=== PATIENT | female | born 1970 | race Caucasian/White ===

== ENCOUNTER → 2017-08-26 | Outpatient (CLI) | payer OTHER, BC ==
[2017-08-26 12:12] LABS: HEMATOCRIT 45.5 % (37.0-47.0); HEMOGLOBIN 14.9 g/dL (12.5-16.0); MEAN PLATELET VOLUME 9.8 fl (7.4-10.4); RED BLOOD COUNT 4.85 M/mm3 (4.10-5.30); RED CELL DISTRIBUTION WIDTH 12.6 % (11.5-14.5); WHITE BLOOD COUNT 6.2 K/mm3 (4.8-10.8)
[2017-08-26 12:21] LABS: ALBUMIN 4.5 g/dL (3.5-5.0); BUN/CREATININE RATIO 17.3 (6.0-26.0); CALCIUM 9.6 mg/dL (8.4-10.2); POTASSIUM 4.5 mmol/L (3.6-5.0); TOTAL BILIRUBIN 0.6 mg/dL (0.2-1.3); TOTAL PROTEIN 7.9 g/dL (6.3-8.2)
== END ==
LOC: LAB 11:54
PROVIDERS: Family Medicine
DX: I10 Essential (primary) hypertension (principal); F90.9 Attention-deficit hyperactivity disorder, unspecified type

== ENCOUNTER → 2018-02-28 | Outpatient (CLI) | payer BC, OTHER ==
[2018-02-28 19:03] LABS: EOS # 0.1 (0.04-0.40); EOS % 1.7 % (1.0-5.0); HEMATOCRIT 42.6 % (37.0-47.0); HEMOGLOBIN 13.7 g/dL (12.5-16.0); LYMPH# 1.2 (1.50-4.00); MEAN CELL VOLUME 96 fl (78-100); MEAN CORPUSCULAR HEMOGLOBIN 31 pg (27-31); MEAN CORPUSCULAR HGB CONC 32 g/dL (33-37); MEAN PLATELET VOLUME 10.5 fl (7.4-10.4); MONO # 0.5 (0.20-0.80); NEU # 6.4 (1.40-6.50); PLATELET COUNT 318 K/mm3 (130-400); RED BLOOD COUNT 4.45 M/mm3 (4.10-5.30); RED CELL DISTRIBUTION WIDTH 13.1 % (11.5-14.5); WHITE BLOOD COUNT 8.2 K/mm3 (4.8-10.8)
[2018-02-28 20:20] LABS: ERYTHROCYTE SEDIMENTATION RATE 4 mm/hr (0-20)
[2018-02-28 21:03] LABS: ALBUMIN 4.2 g/dL (3.5-5.0); BUN/CREATININE RATIO 23.2 (6.0-26.0); CALCIUM 9.4 mg/dL (8.4-10.2); POTASSIUM 3.8 mmol/L (3.6-5.0); TOTAL BILIRUBIN 0.3 mg/dL (0.2-1.3); TOTAL PROTEIN 6.8 g/dL (6.3-8.2)
[2018-03-01 11:59] LABS: C-REACTIVE PROTEIN XXX
[2018-03-01 22:19] LABS: ANA SCREEN with REFLEX Negative (Negative)
== END ==
LOC: LAB 16:45
PROVIDERS: Family Medicine
DX: R53.83 Other fatigue (principal)

== ENCOUNTER → 2018-09-29 | Outpatient (CLI) | payer BC, OTHER ==
[2018-09-29 14:37] LABS: EOS # 0.2 (0.04-0.40); EOS % 2.6 % (1.0-5.0); HEMATOCRIT 42.9 % (37.0-47.0); HEMOGLOBIN 14.1 g/dL (12.5-16.0); LYMPH# 1.7 (1.50-4.00); MEAN CELL VOLUME 96 fl (78-100); MEAN CORPUSCULAR HEMOGLOBIN 31 pg (27-31); MEAN CORPUSCULAR HGB CONC 33 g/dL (33-37); MONO # 0.5 (0.20-0.80); NEU # 4.7 (1.40-6.50); PLATELET COUNT 342 K/mm3 (130-400); RED BLOOD COUNT 4.49 M/mm3 (4.10-5.30); RED CELL DISTRIBUTION WIDTH 12.8 % (11.5-14.5); WHITE BLOOD COUNT 7.1 K/mm3 (4.8-10.8)
[2018-09-29 14:45] LABS: ALBUMIN 4.5 g/dL (3.5-5.0); CALCIUM 9.5 mg/dL (8.4-10.2); POTASSIUM 3.7 mmol/L (3.6-5.0); TOTAL BILIRUBIN 0.4 mg/dL (0.2-1.3); TOTAL PROTEIN 7.3 g/dL (6.3-8.2)
== END ==
LOC: LAB 13:57
PROVIDERS: Family Medicine
DX: Z01.419 Encounter for gynecological examination (general) (routine) without abnormal findings (principal); R53.83 Other fatigue; E55.9 Vitamin D deficiency, unspecified; E56.9 Vitamin deficiency, unspecified; R14.0 Abdominal distension (gaseous)

== ENCOUNTER → 2020-02-25 | Outpatient (CLI) | payer BC, OTHER | LOC: LAB 11:22 | DX: R05 Cough (principal) ==

== ENCOUNTER → 2020-10-13 | Outpatient (CLI) | payer BC, OTHER ==
[2020-10-13 09:35] LABS: EOS % 0.6 % (1.0-5.0); HEMATOCRIT 43.5 % (37.0-47.0); HEMOGLOBIN 13.8 g/dL (12.5-16.0); LYMPH# 1.1 (1.50-4.00); MEAN CELL VOLUME 94 fl (78-100); MEAN CORPUSCULAR HEMOGLOBIN 30 pg (27-31); MEAN CORPUSCULAR HGB CONC 32 g/dL (33-37); MEAN PLATELET VOLUME 9.6 fl (7.4-10.4); MONO # 0.4 (0.20-0.80); PLATELET COUNT 320 K/mm3 (130-400); RED BLOOD COUNT 4.61 M/mm3 (4.10-5.30); RED CELL DISTRIBUTION WIDTH 12.4 % (11.5-14.5); WHITE BLOOD COUNT 6.4 K/mm3 (4.8-10.8)
[2020-10-13 09:38] LABS: ALBUMIN 4.4 g/dL (3.5-5.0); POTASSIUM 4.3 mmol/L (3.5-5.1)
[2020-10-13 09:39] LABS: CALCIUM 9.3 mg/dL (8.3-10.5)
[2020-10-13 09:40] LABS: TOTAL PROTEIN 6.7 g/dL (6.4-8.3)
[2020-10-13 09:42] LABS: TOTAL BILIRUBIN 0.4 mg/dL (0.2-1.2)
== END ==
LOC: LAB 09:15
PROVIDERS: Family Medicine
DX: Z00.00 Encounter for general adult medical examination without abnormal findings (principal); E78.5 Hyperlipidemia, unspecified; R53.83 Other fatigue

== ENCOUNTER → 2021-09-18 | Outpatient (CLI) | payer BC, OTHER ==
[2021-09-18 14:38] LABS: BASO # 0.04 K/mm3 (0.02-0.10); EOS # 0.29 K/mm3 (0.04-0.40); HEMATOCRIT 43.4 % (37.0-47.0); HEMOGLOBIN 14.2 g/dL (12.5-16.0); LYMPH# 1.63 K/mm3 (1.50-4.00); MEAN CELL VOLUME 96 fl (78-100); MEAN CORPUSCULAR HEMOGLOBIN 32 pg (27-31); MEAN CORPUSCULAR HGB CONC 33 g/dL (33-37); MEAN PLATELET VOLUME 9.4 fl (7.4-10.4); MONO # 0.46 K/mm3 (0.20-0.80); NEU # 4.81 K/mm3 (1.40-6.50); PLATELET COUNT 325 K/mm3 (130-400); RED CELL DISTRIBUTION WIDTH 12.5 % (11.5-14.5); WHITE BLOOD COUNT 7.2 K/mm3 (4.8-10.8)
[2021-09-18 14:57] LABS: ALBUMIN 4.6 g/dL (3.5-5.0); POTASSIUM 3.6 mmol/L (3.5-5.1)
[2021-09-18 14:58] LABS: CALCIUM 9.9 mg/dL (8.3-10.5)
[2021-09-18 15:00] LABS: TOTAL PROTEIN 7.4 g/dL (6.4-8.3)
[2021-09-18 15:02] LABS: TOTAL BILIRUBIN 0.4 mg/dL (0.2-1.2)
== END ==
LOC: LAB 14:26
PROVIDERS: Family Medicine
DX: Z00.00 Encounter for general adult medical examination without abnormal findings (principal); E78.5 Hyperlipidemia, unspecified

== ENCOUNTER → 2022-04-27 | Outpatient (CLI) | payer BC, OTHER ==
[2022-04-27 15:50] LABS: BASO # 0.02 K/mm3 (0.02-0.10); EOS # 0.06 K/mm3 (0.04-0.40); EOS % 0.8 % (1.0-5.0); HEMATOCRIT 44.2 % (37.0-47.0); HEMOGLOBIN 14.6 g/dL (12.5-16.0); LYMPH# 1.49 K/mm3 (1.50-4.00); MEAN CELL VOLUME 95 fl (78-100); MEAN CORPUSCULAR HEMOGLOBIN 32 pg (27-31); MEAN CORPUSCULAR HGB CONC 33 g/dL (33-37); MEAN PLATELET VOLUME 9.3 fl (7.4-10.4); MONO # 0.38 K/mm3 (0.20-0.80); NEU # 5.85 K/mm3 (1.40-6.50); PLATELET COUNT 333 K/mm3 (130-400); RED BLOOD COUNT 4.64 M/mm3 (4.10-5.30); RED CELL DISTRIBUTION WIDTH 13.3 % (11.5-14.5); WHITE BLOOD COUNT 7.8 K/mm3 (4.8-10.8)
[2022-04-27 16:13] LABS: ALBUMIN 4.6 g/dL (3.5-5.0); POTASSIUM 3.7 mmol/L (3.5-5.1)
[2022-04-27 16:14] LABS: CALCIUM 10.1 mg/dL (8.3-10.5)
[2022-04-27 16:16] LABS: TOTAL PROTEIN 7.3 g/dL (6.4-8.3)
[2022-04-27 16:17] LABS: TOTAL BILIRUBIN 0.5 mg/dL (0.2-1.2)
[2022-04-30 11:50] LABS: VITAMIN A 65.4 mcg/dL (())
== END ==
LOC: LAB 15:20
PROVIDERS: Family Medicine
DX: Z00.00 Encounter for general adult medical examination without abnormal findings (principal); F90.9 Attention-deficit hyperactivity disorder, unspecified type; F32.9 Major depressive disorder, single episode, unspecified; N80.9 Endometriosis, unspecified; F41.1 Generalized anxiety disorder; I10 Essential (primary) hypertension; G47.00 Insomnia, unspecified; G43.909 Migraine, unspecified, not intractable, without status migrainosus; E78.5 Hyperlipidemia, unspecified; E56.9 Vitamin deficiency, unspecified; E03.9 Hypothyroidism, unspecified; J30.9 Allergic rhinitis, unspecified

== ENCOUNTER 2022-06-16 11:51 | Emergency (ER) | payer BC, OTHER ==
[2022-06-16 14:26] VITALS: BP 161/97
== END 2022-06-16 14:27 | disposition home or self-care (01) ==
LOC: ED 11:51
DX: S06.0X0A Concussion without loss of consciousness, initial encounter (principal); W22.8XXA Striking against or struck by other objects, initial encounter

== ENCOUNTER → 2022-08-20 | Outpatient (CLI) | payer BC, OTHER | LOC: LAB 08:33 | DX: J30.9 Allergic rhinitis, unspecified (principal); R53.83 Other fatigue; Z77.120 Contact with and (suspected) exposure to mold (toxic) ==

== ENCOUNTER → 2024-03-12 | Outpatient (CLI) | payer BC, OTHER ==
[2024-04-16 09:08] LABS: ALBUMIN 4.5 g/dL (3.5-5.0); CALCIUM 9.9 mg/dL (8.3-10.5); TOTAL BILIRUBIN 0.4 mg/dL (0.2-1.2); TOTAL PROTEIN 6.3 g/dL (6.4-8.3)
[2024-04-16 09:32] LABS: BASO # 0.02 K/mm3 (0.02-0.10); EOS # 0.25 K/mm3 (0.04-0.40); EOS % 4.8 % (1.0-5.0); HEMATOCRIT 45.3 % (37.0-47.0); HEMOGLOBIN 14.5 g/dL (12.5-16.0); LYMPH# 1.34 K/mm3 (1.50-4.00); MEAN CELL VOLUME 97 fl (78-100); MEAN CORPUSCULAR HEMOGLOBIN 31 pg (27-31); MEAN CORPUSCULAR HGB CONC 32 g/dL (33-37); MEAN PLATELET VOLUME 8.9 fl (7.4-10.4); MONO # 0.32 K/mm3 (0.20-0.80); NEU # 3.25 K/mm3 (1.40-6.50); PLATELET COUNT 278 K/mm3 (130-400); RED BLOOD COUNT 4.65 M/mm3 (4.10-5.30); RED CELL DISTRIBUTION WIDTH 11.7 % (11.5-14.5); WHITE BLOOD COUNT 5.2 K/mm3 (4.8-10.8)
== END ==
LOC: LAB 07:30
PROVIDERS: Nurse Practitioner
DX: E78.2 Mixed hyperlipidemia (principal); E55.9 Vitamin D deficiency, unspecified; R22.1 Localized swelling, mass and lump, neck

== ENCOUNTER 2024-07-15 15:34 | Emergency (ER) | payer BC, OTHER ==
[~2024-07-15] VITALS: Ht 160 cm; Wt 61.5 kg
[2024-07-15] MEDS ORDERED: ALPRAZOLAM0.5 MG PO (15:57)
[2024-07-15] MEDS ORDERED: PRAZOSIN PO (15:57)
[2024-07-15] MEDS ORDERED: TOPIRAMATE25 MG PO (15:57)
[2024-07-15] MEDS ORDERED: ALPRAZOLAM1 MG PO (15:58)
[2024-07-15] MEDS ORDERED: DESVENLAFAXINE50 M3 PO (15:58)
[2024-07-15] MEDS ORDERED: PRAZOSIN HYDROCH5 MG PO (15:58)
[2024-07-15] MEDS ORDERED: WELLBUTRIN XL300 M1 PO (15:58)
[2024-07-15] MEDS ORDERED: RIZATRIPTAN BEN10 MG PO (15:59)
[2024-07-15] MEDS ORDERED: HCTZ 25MG25 MG PO (15:59)
[2024-07-15] MEDS ORDERED: VITAMIN D325 MC2 (16:00)
[2024-07-15] MEDS ORDERED: VYVANSE40 MG PO (16:00)
[2024-07-15] MEDS ORDERED: ESTRADIOL PO (16:00)
[2024-07-15] MEDS ORDERED: ZOLPIDEM TART12.5 MG PO (16:00)
[2024-07-15] MEDS ORDERED: NORET PO (16:00)
[2024-07-15] MEDS ORDERED: SINGULAIR 110 MG/TAB PO (16:01)
[2024-07-15] MEDS ORDERED: AIMOVIG AU70 MG/1 ML SQ (16:01)
[2024-07-15] MEDS ORDERED: TRETINOIN20 G2 TOP (16:01)
[2024-07-15] MEDS ORDERED: PAXLOVID 300-11 EACH PO (16:29)
[2024-07-15 17:09] VITALS: BP 134/102
== END 2024-07-15 17:10 | disposition home or self-care (01) ==
LOC: ED 15:34
DX: U07.1 COVID-19 (principal); R05.9 Cough, unspecified; R09.81 Nasal congestion; J02.9 Acute pharyngitis, unspecified

== ENCOUNTER → 2024-09-05 | Outpatient (CLI) | payer BC, OTHER ==
[~2024-09-05] MED LIST: AIMOVIG AU70 MG/1 ML SQ; ALBUTEROL SULF6.7 GM IH; ALPRAZOLAM0.5 MG PO; ALPRAZOLAM1 MG PO; Bentyl PO; CEFDINIR300 MG PO; CETIRIZINE HCL10 MG PO; DAILY MULTIVIT1 EACH PO; DESVENLAFAXINE50 M3 PO; ESTRADIOL PO; FLUCONAZOLE100 MG PO; HCTZ 25MG25 MG PO; HYDROCODONE-CH115 ML; MAGNESIUM OXID400 M2 PO; NORET PO; PAXLOVID 300-11 EACH PO; POTASSIUM CHLO10 ME7 PO; PRAZOSIN HYDROCH5 MG PO; PRAZOSIN PO; RIZATRIPTAN BEN10 MG PO; SINGULAIR 110 MG/TAB PO; TOPIRAMATE25 MG PO; TRETINOIN20 G2 TOP; VANCOCIN125 MG PO; VITAMIN D325 MC2; VYVANSE40 MG PO; WELLBUTRIN XL300 M1 PO; ZOLPIDEM TART12.5 MG PO; [UNRECOGNIZED DRUG - OTHER] PO
[2024-09-05 09:07] LABS: BASO # 0.02 K/mm3 (0.02-0.10); EOS # 0.12 K/mm3 (0.04-0.40); HEMATOCRIT 43.5 % (37.0-47.0); HEMOGLOBIN 14.2 g/dL (12.5-16.0); LYMPH# 1.31 K/mm3 (1.50-4.00); MEAN CELL VOLUME 98 fl (78-100); MEAN CORPUSCULAR HEMOGLOBIN 32 pg (27-31); MEAN CORPUSCULAR HGB CONC 33 g/dL (33-37); MEAN PLATELET VOLUME 9.3 fl (7.4-10.4); MONO # 0.37 K/mm3 (0.20-0.80); NEU # 4.14 K/mm3 (1.40-6.50); PLATELET COUNT 312 K/mm3 (130-400); RED BLOOD COUNT 4.45 M/mm3 (4.10-5.30); RED CELL DISTRIBUTION WIDTH 12.9 % (11.5-14.5)
[2024-09-05 09:18] LABS: ALBUMIN 4.5 g/dL (3.5-5.0)
[2024-09-05 09:19] LABS: CALCIUM 9.4 mg/dL (8.3-10.5)
[2024-09-05 09:21] LABS: TOTAL PROTEIN 6.9 g/dL (6.4-8.3)
[2024-09-05 09:22] LABS: TOTAL BILIRUBIN 0.4 mg/dL (0.2-1.2)
[2024-09-05 09:35] LABS: D-DIMER 0.64 mg/L FEU (0.15-0.50)
== END ==
LOC: LAB 08:43
PROVIDERS: Family Medicine
DX: R05.9 Cough, unspecified (principal); I10 Essential (primary) hypertension

== ENCOUNTER → 2024-09-07 | Outpatient (CLI) | payer BC, OTHER ==
[~2024-09-07] MED LIST changes: -ALBUTEROL SULF6.7 GM IH; -Bentyl PO; -CEFDINIR300 MG PO; -CETIRIZINE HCL10 MG PO; -DAILY MULTIVIT1 EACH PO; -FLUCONAZOLE100 MG PO; -HYDROCODONE-CH115 ML; +Iohexol 350 - 100 ML VIAL IV ONE; -MAGNESIUM OXID400 M2 PO; -POTASSIUM CHLO10 ME7 PO; -VANCOCIN125 MG PO; -[UNRECOGNIZED DRUG - OTHER] PO
== END ==
LOC: RAD 09:37
DX: R79.1 Abnormal coagulation profile (principal)
CPT/HCPCS: Q9967

== ENCOUNTER 2024-09-12 14:59 | Inpatient (IN) | payer BC, OTHER ==
[~2024-09-12] VITALS: Ht 160 cm; Wt 63.0 kg
[~2024-09-12 14:59] MED LIST changes: -Iohexol 350 - 100 ML VIAL IV ONE
[2024-09-12] MEDS ORDERED: CEFDINIR300 MG PO (16:44)
[2024-09-12] MEDS ORDERED: WELLBUTRIN XL300 M1 PO (16:44)
[2024-09-12] MEDS ORDERED: FLUCONAZOLE100 MG PO (16:44)
[2024-09-12] MEDS ORDERED: HYDROmorphone 0.5 MG/0.5 ML SYRINGE IV ONE (16:45)
[2024-09-12] MEDS ORDERED: Ondansetron 4 MG/2 ML VIAL IV ONE (16:45)
[2024-09-12] MEDS ORDERED: ALBUTEROL SULF6.7 GM IH (16:45)
[2024-09-12] MEDS ORDERED: NS 1,000 ML IV ONE (16:45)
[2024-09-12] MEDS ORDERED: HYDROCODONE-CH115 ML (16:47)
[2024-09-12] MEDS ORDERED: Iohexol 300 - 100 ML VIAL IV ONE (16:47)
[2024-09-12] MEDS ORDERED: CETIRIZINE HCL10 MG PO (16:49)
[2024-09-12] MEDS ORDERED: MAGNESIUM OXID400 M2 PO (16:50)
[2024-09-12 17:06] LABS: HEMATOCRIT 45.7 % (37.0-47.0); HEMOGLOBIN 15.1 g/dL (12.5-16.0); MEAN CELL VOLUME 97 fl (78-100); MEAN CORPUSCULAR HEMOGLOBIN 32 pg (27-31); MEAN CORPUSCULAR HGB CONC 33 g/dL (33-37); MEAN PLATELET VOLUME 9.1 fl (7.4-10.4); PLATELET COUNT 301 K/mm3 (130-400); RED CELL DISTRIBUTION WIDTH 12.9 % (11.5-14.5)
[2024-09-12 17:13] LABS: WHITE BLOOD COUNT 24.6 K/mm3 (4.8-10.8)
[2024-09-12 17:17] LABS: ALBUMIN 4.5 g/dL (3.5-5.0)
[2024-09-12 17:19] LABS: CALCIUM 9.7 mg/dL (8.3-10.5)
[2024-09-12 17:22] LABS: TOTAL BILIRUBIN 0.4 mg/dL (0.2-1.2)
[2024-09-12 17:41] LABS: BAND 8 % (0-10); LYMPHOCYTE 4 % (20-51); MONOCYTE 1 % (3-10); NEUTROPHILS 87 % (42-75)
[2024-09-12 18:12] LABS: URINE APPEARANCE SLIGHTLY CLOUDY (CLEAR); URINE BILIRUBIN NEGATIVE (NEGATIVE); URINE BLOOD NEGATIVE (NEGATIVE); URINE COLOR DARK YELLOW (YELLOW); URINE GLUCOSE NEGATIVE (NEGATIVE); URINE KETONE NEGATIVE (NEGATIVE); URINE LEUKOCYTE ESTERASE NEGATIVE (NEGATIVE); URINE NITRATE NEGATIVE (NEGATIVE); URINE PROTEIN(semi-quant) TRACE (NEGATIVE)
[2024-09-12 18:15] LABS: PH-URINE 7.5 (5.0 - 8.0); URINE MUCUS PRESENT (NOT PRESENT); URINE WBC 0-1 /hpf (0-3)
[2024-09-12] MEDS ORDERED: cefTRIAXone 1 G in Water For Injection,Sterile 10 ML IV ONE (18:30)
[2024-09-12] MEDS ORDERED: DAILY MULTIVIT1 EACH PO (18:41)
[2024-09-12] MEDS ORDERED: [UNRECOGNIZED DRUG - OTHER] PO (18:43)
[2024-09-12] MEDS ORDERED: Ketorolac 30 MG/ML VIAL IV SCH (20:00)
[2024-09-12] MEDS ORDERED: Cetirizine 10 MG TAB PO PRN (20:00)
[2024-09-12] MEDS ORDERED: ALPRAZolam 0.5 MG TAB PO PRN (20:00)
[2024-09-12] MEDS ORDERED: NS 1,000 ML IV SCH (20:00)
[2024-09-12] MEDS ORDERED: oxyCODONE 5 MG TAB PO PRN (20:00)
[2024-09-12] MEDS ORDERED: Naloxone 0.4 MG/ML VIAL IV PRN (20:00)
[2024-09-12] MEDS ORDERED: Albuterol 90 MCG/PUFF MDI IH PRN (20:00)
[2024-09-12] MEDS ORDERED: Acetaminophen 325 MG TAB PO PRN (20:00)
[2024-09-12] MEDS ORDERED: Piperacillin/Tazobactam Sodium 3.375 GM in NS 100 ML IV SCH (20:00)
[2024-09-12 20:34] VITALS: BP 121/73
[2024-09-12] MEDS ORDERED: Montelukast 10 MG TAB PO SCH (21:00)
[2024-09-12] MEDS ORDERED: HYDROcodone/Chlorphen Polst ER Susp 10-8 MG/5 ML UD PO SCH (21:00)
[2024-09-12] MEDS ORDERED: ALPRAZolam 0.5 MG TAB PO SCH (21:00)
[2024-09-12] MEDS ORDERED: Prazosin 1 MG CAP PO SCH (21:00)
[2024-09-12] MEDS ORDERED: Zolpidem 5 MG TAB PO SCH (21:00)
[2024-09-12 22:53] VITALS: BP 113/77
--- NOTE | 2024-09-12 23:21 | NUR ---
PATIENT UP TO TOILET HAVING LOOSE STOOLS. SAMPLE COLLECTED AND TAKEN TO LAB.
[2024-09-13 04:13] VITALS: BP 82/54
--- NOTE | 2024-09-13 05:29 | NUR ---
PATIENT A&O X 4. UP TO AD ULISSES. AMBULATES TO AND FROM TOILET ON OWN. LOOSE STOOLS X 3. FLUIDS INFUSING PER ORDERS. CONTACT PRECAUTIONS CONTINUE. CALL LIGHTIN REACH
--- NOTE | 2024-09-13 07:00 | NUR ---
REPORT RECEIVED FROM LOGAN COLE
--- NOTE | 2024-09-13 07:15 | NUR ---
PATIENT RESTING IN BED WITH EYES CLOSED. AROUSABLE TO VOICE. PATIENT HAS ROOM PRIVILAGES, DENIES NEEDS OR COMPLAINTS AT THIS TIME.
[2024-09-13 07:35] LABS: BASO # 0.01 K/mm3 (0.02-0.10); EOS # 0.04 K/mm3 (0.04-0.40); EOS % 0.2 % (1.0-5.0); HEMATOCRIT 33.7 % (37.0-47.0); MEAN CELL VOLUME 97 fl (78-100); MEAN CORPUSCULAR HEMOGLOBIN 34 pg (27-31); MEAN CORPUSCULAR HGB CONC 35 g/dL (33-37); MEAN PLATELET VOLUME 9.2 fl (7.4-10.4); MONO # 1.04 K/mm3 (0.20-0.80); NEU # 18.62 K/mm3 (1.40-6.50); RED BLOOD COUNT 3.48 M/mm3 (4.10-5.30); RED CELL DISTRIBUTION WIDTH 13.1 % (11.5-14.5)
[2024-09-13 07:37] LABS: HEMOGLOBIN 11.9 g/dL (12.5-16.0); PLATELET COUNT 195 K/mm3 (130-400)
[2024-09-13 07:39] LABS: ALBUMIN 2.9 g/dL (3.5-5.0); WHITE BLOOD COUNT 20.5 K/mm3 (4.8-10.8)
[2024-09-13 07:41] LABS: CALCIUM 7.7 mg/dL (8.3-10.5)
[2024-09-13 07:42] LABS: TOTAL PROTEIN 4.5 g/dL (6.4-8.3)
[2024-09-13 07:44] LABS: TOTAL BILIRUBIN 0.3 mg/dL (0.2-1.2)
[2024-09-13] MEDS ORDERED: LOPERAMIDE 2 MG/15 ML PO PRN (08:00)
[2024-09-13 08:47] VITALS: BP 82/54
[2024-09-13] MEDS ORDERED: hydroCHLOROthiazide 25 MG TAB PO SCH (09:00)
[2024-09-13] MEDS ORDERED: buPROPion XL (24-HR ER) 150 MG TAB PO SCH (09:00)
[2024-09-13] MEDS ORDERED: Topiramate 25 MG TAB PO SCH (09:00)
--- NOTE | 2024-09-13 09:00 | NUR ---
PATIENT LYING IN BED WITH AT BEDSIDE. A&Ox4, STATES PAIN "ALL OVER EXCEPT MY TOES". PATIENT ASKS ABOUT LAB VALUES. PATIENT DENIES OTHER NEEDS OR COMPLAINTS AT THIS TIME. ASSESSMENT COMPLETE, MEDICATIONS GIVEN. CALL LIGHT WITHIN REACH.
[2024-09-13 11:13] VITALS: BP 94/59
[2024-09-13] MEDS ORDERED: Ondansetron 4 MG/2 ML VIAL IV PRN (12:30)
[2024-09-13 13:36] LABS: MAGNESIUM 1.46 mg/dL (1.60-2.60)
--- NOTE | 2024-09-13 14:00 | NUR ---
PATIENT STATES "STARTING TO FEEL BETTER". PATIENT DENIES OTHER NEEDS OR COMPLAINTS AT THIS TIME. FAMILY AT BEDSIDE.
[2024-09-13 15:18] VITALS: BP 89/55
[2024-09-13] MEDS ORDERED: Magnesium Oxide 400 MG TAB PO SCH (17:00)
--- NOTE | 2024-09-13 17:15 | NUR ---
EDUCATION PROVIDER TO PATIENT AND FAMILY ABOUT HANDWASHING WITH SOAP AND WATER DUE TO INFECTION
[2024-09-13] MEDS ORDERED: Loperamide 2 MG CAP PO PRN (17:45)
--- NOTE | 2024-09-13 19:00 | NUR ---
REPORT GIVEN TO LOGAN PAINTING
[2024-09-13 19:18] VITALS: BP 117/64
[2024-09-13 22:53] VITALS: BP 94/57
--- NOTE | 2024-09-14 03:02 | NUR ---
Pt had abnormal vs with bp at 86/53, pct retried bp and was 90/52, hr 93, spo2% 94, temp 98.7 and rr 24. pt denies feeling dizzines or lightheadedness. pt stated she went to bathroom w/o difficulties. pt is currently in iv fluids ns @ 125ml/hr. this rn notified provider, no new orders were given.
[2024-09-14 03:03] VITALS: BP 90/52
[2024-09-14 08:24] LABS: BASO # 0.02 K/mm3 (0.02-0.10); EOS # 0.17 K/mm3 (0.04-0.40); EOS % 1.6 % (1.0-5.0); HEMATOCRIT 34.5 % (37.0-47.0); HEMOGLOBIN 11.2 g/dL (12.5-16.0); LYMPH# 0.92 K/mm3 (1.50-4.00); MEAN CELL VOLUME 99 fl (78-100); MEAN CORPUSCULAR HEMOGLOBIN 32 pg (27-31); MEAN CORPUSCULAR HGB CONC 33 g/dL (33-37); MEAN PLATELET VOLUME 9.2 fl (7.4-10.4); MONO # 0.65 K/mm3 (0.20-0.80); NEU # 8.65 K/mm3 (1.40-6.50); PLATELET COUNT 168 K/mm3 (130-400); RED CELL DISTRIBUTION WIDTH 13.4 % (11.5-14.5); WHITE BLOOD COUNT 10.4 K/mm3 (4.8-10.8)
[2024-09-14 08:31] LABS: ALBUMIN 2.7 g/dL (3.5-5.0)
[2024-09-14 08:32] LABS: CALCIUM 7.6 mg/dL (8.3-10.5)
[2024-09-14 08:33] LABS: TOTAL PROTEIN 4.5 g/dL (6.4-8.3)
[2024-09-14 08:35] LABS: TOTAL BILIRUBIN 0.2 mg/dL (0.2-1.2)
[2024-09-14 08:48] VITALS: BP 86/64
[2024-09-14 11:12] VITALS: BP 81/53
[2024-09-14] MEDS ORDERED: Dicyclomine 10 MG CAP PO SCH (11:56)
--- NOTE | 2024-09-14 11:56 | NUR ---
RAJENDRA PALMER IN TO VISIT PT. PT IS AGREEABLE TO STAY AN ADDITIONAL 24-48 HOURS. OVER ALL HER LABS HAVE IMPROVED. ONCE PTS STOOLS ARE CONTROLLED AND PT IS MANAGING ORAL HYDRATION, PT MAY RETURN HOME. THIS NURS PRINTED LAB RESULTS FOR PT.
[2024-09-14 15:00] VITALS: BP 94/54
[2024-09-14 19:40] VITALS: BP 113/72
--- NOTE | 2024-09-14 20:06 | NUR ---
Report received from Alina FORD. Patient resting supine in bed with visitor at bedside. IVF infusing NS at 75 ML/HR. Site patent to Shirley LUTZ. Reports a H/A 03/26. Scheduled Toradol 15 Mg given IV at this time, along with PO Vancomycin. Requests Rickie, advised had at 1744 and not due again until 2144 and patient ok with that. Reports stools lessening in frequency and amounts. Assessment completed. Up ad-crystal in room. Remains on Contact + isolation. Denies questions, wants or needs at this time.
[2024-09-14 23:00] VITALS: BP 106/67
[2024-09-14] MEDS ORDERED: D5W 1,000 ML IV SCH (23:45)
--- NOTE | 2024-09-15 01:53 | NUR ---
PO Vancomycin taken and IV Toradol. Sleeping but awakens easily. Reports still having loose stools but unsure how many since 1900. Denies wants or needs at this time. Up ad-crystal to SAM.
[2024-09-15 03:00] VITALS: BP 91/57
--- NOTE | 2024-09-15 06:08 | NUR ---
AM medication taken. Incontinent of small amount of liquid stool on floor on way to BR. States stools continue but less frequent and less amount. Unable to state how many this shift. IV fluids continue at 75 ML/HR D5W.
--- NOTE | 2024-09-15 06:52 | NUR ---
Report to Alina FORD.
[2024-09-15 07:21] LABS: BASO # 0.01 K/mm3 (0.02-0.10); EOS # 0.28 K/mm3 (0.04-0.40); EOS % 4.2 % (1.0-5.0); HEMATOCRIT 31.7 % (37.0-47.0); HEMOGLOBIN 10.7 g/dL (12.5-16.0); LYMPH# 1.12 K/mm3 (1.50-4.00); MEAN CELL VOLUME 97 fl (78-100); MEAN CORPUSCULAR HEMOGLOBIN 33 pg (27-31); MEAN CORPUSCULAR HGB CONC 34 g/dL (33-37); MEAN PLATELET VOLUME 9.9 fl (7.4-10.4); MONO # 0.55 K/mm3 (0.20-0.80); NEU # 4.71 K/mm3 (1.40-6.50); PLATELET COUNT 186 K/mm3 (130-400); RED BLOOD COUNT 3.26 M/mm3 (4.10-5.30); RED CELL DISTRIBUTION WIDTH 13.6 % (11.5-14.5); WHITE BLOOD COUNT 6.7 K/mm3 (4.8-10.8)
[2024-09-15 07:29] LABS: ALBUMIN 2.7 g/dL (3.5-5.0)
[2024-09-15 07:30] LABS: CALCIUM 7.8 mg/dL (8.3-10.5)
[2024-09-15 07:31] LABS: TOTAL PROTEIN 4.6 g/dL (6.4-8.3)
[2024-09-15 07:45] VITALS: BP 101/71
[2024-09-15 07:50] LABS: TOTAL BILIRUBIN 0.1 mg/dL (0.2-1.2)
--- NOTE | 2024-09-15 10:16 | NUR ---
PT REPORTS HAVING 4 LOOSE STOOLS THROUGHOUT THE NIGHT. PT HAS HAD 3 LOOSE STOOLS SINCE 0700. PT DENIES HAVING A COUGH, DENIES NAUSEA. PT REPORTS HAVING A HEADACHE NUMERIC LEVEL OF 4-5. PT HASN'T REPORTED ANY STOMACH CRAMPING TODAY, SHE STATED IT USUALLY OCCURS AFTE EATING. THIS RN ADMINISTERED BENTYL FOR STOMACH CRAMPING.
[2024-09-15 11:16] VITALS: BP 100/66
[2024-09-15 15:10] VITALS: BP 113/72
[2024-09-15 19:00] VITALS: BP 113/78
--- NOTE | 2024-09-15 19:25 | NUR ---
Report received from Alina FORD. Patient resting in bed watching TV. A/O x4. IVF on D5W infusing at 75 ML/HR. Site patent to LAC. Rates pain to stomach 01/24. Scheduled Toradol 15 MG IV and PO Vancomycin given at this time. States has occasional NPC but feels improved some. Denies nausea. Reports loose stools but decreasing. Assessment completed. Up ad-crystal in room. Denies questions, wants or needs at this time. Remains on contact + isolation for C-diff.
--- NOTE | 2024-09-15 21:40 | NUR ---
Requests and given Jello. PO fluids encouraged.
--- NOTE | 2024-09-15 22:39 | NUR ---
Sister called to check on patient. States "I just had the most akward conversation with my Sister and want to make sure she is ok". One time she would make sense and then not so much". This nurse advised patient has taken her night time medications for sleep. so that is probaly it. This nurse in to check on patient. Patient walking back from bathroom and states "oh I thought you were probably my Sister". Advised patient that sister had called with concern. Patient states "I told her I was tired and didn't get much sleep last night." " I don't usually talk to her after I have gone to bed". "I am fine". Denies wants or needs at this time.
[2024-09-15 23:08] VITALS: BP 109/64
--- NOTE | 2024-09-16 03:41 | NUR ---
IV fluids completed. INT flushed easily with NS. RN in to obtain V/S. .
[2024-09-16 03:57] VITALS: BP 103/71
--- NOTE | 2024-09-16 06:10 | NUR ---
Awake, sitting up in bed. Scheduled AM protonix taken. States total of 3 loose stools last night. States greater in amount then during the daytime but much less then earlier days. Denies wants or needs at this time.
--- NOTE | 2024-09-16 06:58 | NUR ---
Report to Alina FORD.
[2024-09-16 07:20] VITALS: BP 108/72
[2024-09-16] MEDS ORDERED: VANCOCIN125 MG PO (10:29)
[2024-09-16] MEDS ORDERED: Bentyl PO (10:31)
[2024-09-16] MEDS ORDERED: POTASSIUM CHLO10 ME7 PO (10:32)
[2024-09-16 10:56] VITALS: BP 119/82
--- NOTE | 2024-09-16 11:34 | NUR ---
0900 THIS NURSE SPOKE WITH PT ABOUT POSSIBLY GOING HOME TODAY. PT STATED " IF THE PROVIDER WILL PERMIT ME TO GO HOME, I WOULD LIKE TO TODAY." PTS STOOLS HAVE SLOWED DOWN TO 3 OVER 14 HOURS. RN EDUCATED PT AND FAMILY TO HAVE PT USE ONE DESIGNATED BATHROOM IN THE HOUSE. WASH HANDS THOUGHROUGHLY WITH SOAP AND WATER. [id number] RN PREPARING DISCHARGE PAPERWORK. PROVIDER HAS ORDERED DISCHARGE.
== END 2024-09-16 11:57 | disposition home or self-care (01) | DRG 720 ==
LOC: ED 14:59 → MED/SURG 18:48
PROVIDERS: Nurse Practitioner Family; ADMIT Family Medicine
DX: A41.9 Sepsis, unspecified organism (principal); A04.72 Enterocolitis due to Clostridium difficile, not specified as recurrent; N20.0 Calculus of kidney; I10 Essential (primary) hypertension; E87.6 Hypokalemia; E83.42 Hypomagnesemia; E87.8 Other disorders of electrolyte and fluid balance, not elsewhere classified; G43.909 Migraine, unspecified, not intractable, without status migrainosus; F90.9 Attention-deficit hyperactivity disorder, unspecified type; F32.A Depression, unspecified; F41.9 Anxiety disorder, unspecified; G47.00 Insomnia, unspecified; R00.0 Tachycardia, unspecified; Z79.891 Long term (current) use of opiate analgesic; Z79.899 Other long term (current) drug therapy
CPT/HCPCS: J1171; J1836; J1885; J2405; J2543; J7030; J7070; Q9967

== ENCOUNTER → 2024-09-19 | Outpatient (CLI) | payer BC, OTHER ==
[~2024-09-19] MED LIST changes: +ALBUTEROL SULF6.7 GM IH; +Bentyl PO; +CEFDINIR300 MG PO; +CETIRIZINE HCL10 MG PO; +DAILY MULTIVIT1 EACH PO; +FLUCONAZOLE100 MG PO; +HYDROCODONE-CH115 ML; +MAGNESIUM OXID400 M2 PO; +POTASSIUM CHLO10 ME7 PO; +VANCOCIN125 MG PO; +[UNRECOGNIZED DRUG - OTHER] PO
[2024-09-19 08:43] LABS: BASO # 0.04 K/mm3 (0.02-0.10); EOS # 0.27 K/mm3 (0.04-0.40); EOS % 3.6 % (1.0-5.0); HEMATOCRIT 42.9 % (37.0-47.0); HEMOGLOBIN 13.7 g/dL (12.5-16.0); LYMPH# 1.63 K/mm3 (1.50-4.00); MEAN CELL VOLUME 97 fl (78-100); MEAN CORPUSCULAR HEMOGLOBIN 31 pg (27-31); MEAN CORPUSCULAR HGB CONC 32 g/dL (33-37); MEAN PLATELET VOLUME 8.6 fl (7.4-10.4); MONO # 0.49 K/mm3 (0.20-0.80); NEU # 4.44 K/mm3 (1.40-6.50); PLATELET COUNT 465 K/mm3 (130-400); RED BLOOD COUNT 4.41 M/mm3 (4.10-5.30); RED CELL DISTRIBUTION WIDTH 13.1 % (11.5-14.5); WHITE BLOOD COUNT 7.5 K/mm3 (4.8-10.8)
[2024-09-19 08:48] LABS: ALBUMIN 3.8 g/dL (3.5-5.0)
[2024-09-19 08:49] LABS: CALCIUM 9.6 mg/dL (8.3-10.5)
[2024-09-19 08:50] LABS: TOTAL PROTEIN 6.6 g/dL (6.4-8.3)
[2024-09-19 08:52] LABS: TOTAL BILIRUBIN 0.2 mg/dL (0.2-1.2)
[2024-09-19 23:37] LABS: HEPATITIS C ANTIBODY Nonreactive (Nonreactiv)
== END ==
LOC: LAB 08:32
PROVIDERS: Family Medicine
DX: A04.72 Enterocolitis due to Clostridium difficile, not specified as recurrent (principal); I10 Essential (primary) hypertension

== ENCOUNTER → 2024-10-25 | Outpatient (CLI) | payer BC, OTHER ==
[2024-10-25 08:14] LABS: BASO # 0.01 K/mm3 (0.02-0.10); EOS # 0.24 K/mm3 (0.04-0.40); EOS % 4.7 % (1.0-5.0); HEMATOCRIT 44.2 % (37.0-47.0); HEMOGLOBIN 14.8 g/dL (12.5-16.0); LYMPH# 1.47 K/mm3 (1.50-4.00); MEAN CELL VOLUME 96 fl (78-100); MEAN CORPUSCULAR HEMOGLOBIN 32 pg (27-31); MEAN CORPUSCULAR HGB CONC 34 g/dL (33-37); MEAN PLATELET VOLUME 9.2 fl (7.4-10.4); NEU # 3.06 K/mm3 (1.40-6.50); PLATELET COUNT 306 K/mm3 (130-400); WHITE BLOOD COUNT 5.1 K/mm3 (4.8-10.8)
[2024-10-25 08:22] LABS: ALBUMIN 4.7 g/dL (3.5-5.0)
[2024-10-25 08:23] LABS: CALCIUM 9.9 mg/dL (8.3-10.5)
[2024-10-25 08:24] LABS: TOTAL PROTEIN 7.3 g/dL (6.4-8.3)
[2024-10-25 08:26] LABS: TOTAL BILIRUBIN 0.3 mg/dL (0.2-1.2)
[2024-10-26 09:58] LABS: HEPATITIS C ANTIBODY Nonreactive (Nonreactiv)
== END ==
LOC: LAB 07:54
PROVIDERS: Family Medicine
DX: A04.72 Enterocolitis due to Clostridium difficile, not specified as recurrent (principal); I10 Essential (primary) hypertension

== ENCOUNTER → 2024-11-15 | Outpatient (CLI) | payer BC, OTHER ==
[2024-11-15 09:21] LABS: BASO # 0.01 K/mm3 (0.02-0.10); EOS # 0.09 K/mm3 (0.04-0.40); EOS % 1.8 % (1.0-5.0); HEMATOCRIT 45.8 % (37.0-47.0); HEMOGLOBIN 15.2 g/dL (12.5-16.0); LYMPH# 1.15 K/mm3 (1.50-4.00); MEAN CELL VOLUME 95 fl (78-100); MEAN CORPUSCULAR HEMOGLOBIN 31 pg (27-31); MEAN CORPUSCULAR HGB CONC 33 g/dL (33-37); MEAN PLATELET VOLUME 9.2 fl (7.4-10.4); MONO # 0.28 K/mm3 (0.20-0.80); NEU # 3.42 K/mm3 (1.40-6.50); PLATELET COUNT 321 K/mm3 (130-400); RED BLOOD COUNT 4.84 M/mm3 (4.10-5.30); RED CELL DISTRIBUTION WIDTH 12.1 % (11.5-14.5)
[2024-11-15 09:31] LABS: SODIUM 141 mmol/L (136-145)
[2024-11-15 09:32] LABS: ALBUMIN 4.8 g/dL (3.5-5.0); CALCIUM 9.8 mg/dL (8.3-10.5)
[2024-11-15 09:34] LABS: TOTAL PROTEIN 7.9 g/dL (6.4-8.3)
[2024-11-15 09:35] LABS: CARBON DIOXIDE 24 mmol/L (22-29); GLUCOSE 99 mg/dL (65-105); TOTAL BILIRUBIN 0.4 mg/dL (0.2-1.2)
[2024-11-15 09:39] LABS: AST-SGOT 14 U/L (5-34)
[2024-11-15 09:41] LABS: ALT/SGPT 16 U/L (0-55)
[2024-11-15 09:59] LABS: TROPONIN-I < 0.030 ng/mL (0.00-0.033)
[2024-11-15 10:00] LABS: D-DIMER 0.24 mg/L FEU (0.15-0.50)
[2024-11-16 12:57] LABS: ANA SCREEN with REFLEX Positive (Negative)
== END ==
LOC: LAB 08:52
PROVIDERS: Nurse Practitioner
DX: U09.9 Post COVID-19 condition, unspecified (principal); E55.9 Vitamin D deficiency, unspecified; R00.2 Palpitations

== ENCOUNTER → 2024-11-19 | Outpatient (CLI) | payer BC | LOC: VAS 15:28 → RAD 15:28 | DX: R00.2 Palpitations (principal) ==